=== PATIENT | female | born 1950 | race Caucasian/White ===

== ENCOUNTER → 2017-07-29 09:38 | Outpatient (CLI) | payer OTHER, SELFPAY ==
--- NOTE | 2017-07-29 | DI.CT.S_ITS ---
PROCEDURE: CT ABDOMEN PELVIS WO/W CON INDICATIONS: hematuria. Bladder cancer surveillance TECHNIQUE: Optional 5 mm thick noncontrast images acquired from the diaphragm to the symphysis pubis. After the administration of intravenous contrast, 5 mm thick images acquired from the diaphragm to the symphysis pubis after a 10-minute delay. 2 mm thick coronal and sagittal reformats were then performed of the kidneys and ureters. For radiation dose reduction, the following was used: automated exposure control, adjustment of mA and/or kV according to patient size. COMPARISON: [facility], CT, IVP (ABD & PEL WWO CONTRAST), 06/26/2016, 11:25. FINDINGS: Image quality: Excellent. Lung bases: There are a few small clustered ground glass nodular opacities within the left lower lobe measuring approximately 2 mm. Mild dependent atelectasis is also present bilaterally as well as atelectasis or scarring in the inferior left lingula. Heart size is normal. Urinary system: Both kidneys are normal in size, without hydronephrosis or nephrolithiasis. No perinephric fat stranding. There is symmetric bilateral renal enhancement. 2 small indistinct hypodensities are redemonstrated bilaterally likely representing small cysts. Renal calyces appear normal in morphology when filled with contrast without discrete filling defects will. Opacified portions of both ureters demonstrate normal caliber. Bladder wall thickness is normal. No calcified bladder stones. The partially opacified urinary bladder demonstrates no discrete mass lesions. Other solid organs: There is a cyst within the posterior right hepatic lobe measuring up to 1.4 cm redemonstrated. In addition, there are a few additional scattered well-circumscribed hypodense lesions elsewhere throughout the liver which appears similar to slightly increased in size compared to the prior study. These remain too small to characterize but likely represent cysts. The gallbladder appears within normal limits without calcified gallstones or wall thickening. Biliary system is non dilated. Pancreas enhances normally. Spleen is normal in size and enhancement. No adrenal nodules. Peritoneum and bowel: Bowel loops demonstrate normal wall thickness and caliber. The descending colon is nondistended. There are a few colonic diverticula without acute diverticulitis. No free fluid or air. Nodes and vessels: No retroperitoneal or mesenteric adenopathy by size criteria. Aorta and inferior vena cava are normal in size. Abdominal wall: No ventral hernias. Pelvis: No pathologic free pelvic fluid. No inguinal hernias or adenopathy. Bones: No suspicious bony lesions. No vertebral body compression fractures. IMPRESSION: 1. No definite evidence of new recurrent or metastatic disease. 2. Partially opacified urinary bladder demonstrates no discrete masslike filling defects. Recommend correlation with cystoscopy if clinically indicated. 3. Scattered hypodensities in the liver are too small to characterize but statistically likely represent cysts. Dictated by: Ray Posada M.D. on 07/29/2017 at 13:44 Approved by: Ray Posada M.D. on 07/29/2017 at 13:55
== END ==
PROVIDERS: Family Provider Family Medicine; PCP Family Medicine; Visit Provider Urology
DX: R31.9 Hematuria, unspecified (principal); Z08 Encounter for follow-up examination after completed treatment for malignant neoplasm; K76.9 Liver disease, unspecified
CPT/HCPCS: 74178; Q9967

== ENCOUNTER 2017-11-30 11:56 | Day surgery (SDC) | payer OTHER, SELFPAY ==
[2017-11-19 12:00] VITALS: BMI 29.7
--- NOTE | 2017-11-30 | DI.RAD.S_ITS ---
PROCEDURE: XR LUMBAR SPINE 1V INDICATIONS: L2-3 LAMI AND DISCECTOMY TECHNIQUE: 1 views of the lumbar spine were acquired. COMPARISON: [facility] [place], CR, XR LUMBAR SPINE 2 OR 3 VIEWS, 11/10/2017, 8:46. [facility], MR, MR LUMBAR SPINE WITHOUT CONTRAST, 10/27/2017, 13:32. [facility], CR, L-SPINE MINIMUM 4 VIEWS, 09/02/2010, 11:03. FINDINGS: Intraoperative images demonstrating localizer at the level of L2. Multilevel degenerative changes are present. IMPRESSION: Intraoperative localizer as above. Dictated by: Le Parsons M.D. on 11/30/2017 at 17:17 Approved by: Le Parsons M.D. on 11/30/2017 at 17:17
[2017-11-30 12:30] VITALS: BP 178/72; PULSE 64; RESP 20; TEMP 37.1; O2SAT 98; BMI 29.7
[2017-11-30] MEDS: LACTATED RINGERS 1,000 ML 42 ML IV ×2 (15:00→18:03)
--- NOTE | 2017-11-30 15:27 | PM.PREOP ---
Pre-operative Note Interval Note Pre-op Check: Yes History & Physical Reviewed by Physician and Yes Exam Performed Changes: No
--- NOTE | 2017-11-30 16:01 | P.OP_ITS ---
Operative Date/Time/Diagnoses Date of procedure: 11/30/17 Time of procedure: 17:32 Pre-op diagnosis: Lumbar disc herniation with radiculopathy Post-op diagnosis: same Procedure & Clinicians Procedure: L2-3 right diskectomy Use of microscope Placement of epidural catheter Same procedure as scheduled: Yes Indications: [age] year old female with intractable pain from lumbar disc herniation. They had failed conservative management and requested operative intervention. Risks and benefits of surgery were discussed and appropriate consents were obtained. Surgeon: Deni Bridges Fisheries Enforcement Officer: Alison Corado Anesthesia Type: General Operative Notes Findings: none Closure Type: primary Specimen(s): none sent Estimated Blood Loss (mL): 20 Procedure in detail: Patient was brought to the operating room and intubated on the table. They were rolled over on the well-padded prone position on the Loyd table. A time-out was performed. Preoperative antibiotics were given. The back was prepped and draped in standard sterile fashion. Using fluoroscopy for localization, a 3 cm incision was made in the midline. We used Bovie to dissect through the lumbodorsal fascia and then subperiosteally dissect the paraspinal muscles off the well-marked right side. A marker was placed and x-ray was taken to confirm positioning, factoring in her transitional S1. We then brought in the microscope. A right-sided laminotomy was performed at L2- 3. We also undermined the top of the L3 lamina. The dura was carefully retracted medially and the disc was exposed. We carefully had to clear up until we could free the traversing nerve root and move it out of the way. The disc tracked down behind the L3 vertebral body detention. Bipolar was used for hemostasis. We then performed an annulotomy with a scalpel and then a diskectomy with pituitary. We had to cut down along the extruded fragment and then removed a very large fragment by sweeping with a ball probe. The ball probe was run into the disc space and underneath the dura inferiorly past the pedicle until we are sure that it had all been removed. There were no more fragments. Everything was decompressed. The wound was irrigated. An epidural catheter was prepared with 8 mL of 0.25% Marcaine and 100 mcg of fentanyl. The dura was carefully depressed and the catheter was advanced 6 cm cephalad underneath remaining lamina without resistance. The fascia was then closed in layers. The epidural catheter was injected without complications. Vancomycin powder was placed in the wound. The superficial and the skin were closed. Sterile dressing was placed. Patient was rolled over extubated brought to recovery room with no complications. Complications: none Condition: stable Disposition: PACU Plan for aftercare: Outpatient. Limited bend lift twist for 6 weeks.
[2017-11-30] MEDS: CLINDAMYCIN 900 MG/50 ML PIGGYBACK 50 MG IV (16:05)
--- NOTE | 2017-11-30 16:39 | SUR.OPER ---
Prone on spine table, head in foam head support, padded chest and pelvic supports, gel pad at knees, lower legs supported by pillows; nipples, genitalia and toes free of pressure, arms secured on foam padded arm boards at <90 degrees abduction. Tape over blanket at thigh secured to table.
[2017-11-30] MEDS: THROMBIN (BOVINE) 5,000 UNIT VIAL 5000 UNIT TOP ×2 (16:48→16:56)
[2017-11-30] MEDS: VANCOMYCIN 1,000 MG VIAL 1000 MG TOP ×2 (16:49→16:56)
[2017-11-30] MEDS: BUPIVACAINE 0.25% (PF) 8 ML, fentaNYL 100 MCG INJ ×2 (16:50→16:55)
[2017-11-30] MEDS: SODIUM CHLORIDE 0.9% 1,000 ML, GENTAMICIN 80 MG IRR ×2 (16:50→16:55)
[2017-11-30 17:47] VITALS: BP 114/74; PULSE 88; RESP 14; TEMP 36.9; O2SAT 98
[2017-11-30 17:52] VITALS: BP 132/78; PULSE 88; RESP 14; O2SAT 96
[2017-11-30 17:57] VITALS: BP 131/77; PULSE 90; RESP 14; O2SAT 96
[2017-11-30 18:02] VITALS: BP 142/77; PULSE 93; RESP 14; O2SAT 96
[2017-11-30 18:08] VITALS: BP 152/85; PULSE 90; RESP 14; TEMP 36.1; O2SAT 95
== END 2017-11-30 19:00 | disposition home or self-care (01) ==
PROVIDERS: Family Provider Family Medicine; PCP Family Medicine; Visit Provider Orthopaedic Surgery
PROC: (CPT 63047; principal; 2017-11-30 14:45)
DX: M51.16 Intervertebral disc disorders with radiculopathy, lumbar region (principal); M48.062 Spinal stenosis, lumbar region with neurogenic claudication; M43.16 Spondylolisthesis, lumbar region; Z87.891 Personal history of nicotine dependence; J45.909 Unspecified asthma, uncomplicated
CPT/HCPCS: 63047; 72020; 76000; J1100; J2405; J2704; J3010

== ENCOUNTER → 2019-06-08 07:52 | Outpatient (CLI) | payer MEDICARE, OTHER, SELFPAY ==
--- NOTE | 2019-06-08 | DI.CT.S_ITS ---
PROCEDURE: CT ABDOMEN PELVIS WO/W CON INDICATIONS: Personal history of malignant neoplasm of bladder TECHNIQUE: Optional 5 mm thick noncontrast images acquired from the diaphragm to the symphysis pubis. After the administration of intravenous contrast, 5 mm thick images acquired from the diaphragm to the symphysis pubis after a 10-minute delay. 2 mm thick coronal and sagittal reformats were then performed of the kidneys and ureters. For radiation dose reduction, the following was used: automated exposure control, adjustment of mA and/or kV according to patient size. COMPARISON: [facility], MR, MR LUMBAR SPINE WITHOUT CONTRAST, 10/27/2017, 13:32. [facility], CT, CT ABDOMEN PELVIS WO/W CON, 07/29/2017, 10:00. FINDINGS: Image quality: Excellent. Lung bases: Lung bases are clear. Heart size is normal. Urinary system: Both kidneys are normal in size, without hydronephrosis or nephrolithiasis on pre-contrast images. No perinephric fat stranding. There is normal bilateral renal enhancement. There is a tiny 5 mm indeterminate cortical hypodensity in the mid right kidney. A 3 mm indeterminate cortical hypodensity in the lower pole of the left kidney. Renal calyces appear normal in morphology when filled with contrast. Opacified portions of both ureters demonstrate normal caliber. Bladder wall thickness is normal. No calcified bladder stones. Other solid organs: There are multiple hepatic hypodensities in left and right hepatic lobe, most likely cysts. Liver is normal in size and enhancement. Gallbladder is normal. Biliary system is non dilated. Pancreas enhances normally. Spleen is normal in size and enhancement. No adrenal nodules. Peritoneum and bowel: Stomach appears thickened. Bowel loops demonstrate normal wall thickness and caliber. No free fluid or air. Nodes and vessels: No retroperitoneal or mesenteric adenopathy by size criteria. Aorta and inferior vena cava are normal in size. Abdominal wall: No ventral hernias. Pelvis: Uterus and ovaries are normal. No pathologic free pelvic fluid. No inguinal hernias or adenopathy. Bones: No suspicious bony lesions. No vertebral body compression fractures. IMPRESSION: 1. No recurrent bladder mass. 2. A couple of small indeterminate renal cortical hypodensities, one on each side, probably small renal cysts. 3. Multiple hepatic hypodensities are likely cysts. 4. Stomach appears thickened. Differential diagnoses include gastritis versus lack of distention. Dictated by: Briseida Giles M.D. on 06/08/2019 at 13:34 Approved by: Briseida Giles M.D. on 06/08/2019 at 18:33
[2019-06-08 08:50] LABS: BUN Creatinine Ratio 43.9 (6-22); Blood Urea Nitrogen 29 mg/dL (7-17); Estimated Glomerular Filt Rate > 60.0 mL/min (>60)
== END ==
PROVIDERS: Family Provider Family Medicine; PCP Family Medicine; Referring Provider Urology; Visit Provider Urology
DX: K76.9 Liver disease, unspecified (principal); Z85.51 Personal history of malignant neoplasm of bladder
CPT/HCPCS: 36415; 74178; 82565; 84520; Q9967

== ENCOUNTER → 2020-03-15 11:31 | Outpatient (CLI) | payer MEDICARE, OTHER, SELFPAY ==
--- NOTE | 2020-03-15 11:36 | DI.CT.S_ITS ---
PROCEDURE: CT SINUS SCREEN WO CON INDICATIONS: Chronic rhinitis TECHNIQUE: Noncontrast 3.0 mm axial images acquired from the frontal sinuses to the mid-sella, with coronal and sagittal reformats. For radiation dose reduction, the following was used: automated exposure control, adjustment of mA and/or kV according to patient size. COMPARISON: None. FINDINGS: Image quality: Excellent. Paranasal sinuses are normally aerated. No mucosal thickening identified in the paranasal sinuses. No air-fluid levels identified in the paranasal sinuses. The ostiomeatal units are patent bilaterally. Small bilateral magnolia bullosa. No paradoxical turbinates. Nasal septum is slightly deviated to the right. No osseous erosive changes, osseous remodeling or osseous thickening. Incidental note made of hyperostosis frontalis. IMPRESSION: 1. No paranasal sinus mucosal thickening. 2. No paranasal sinus air-fluid levels. Dictated by: Ca Chamberlain MD, PhD on 03/15/2020 at 16:24 Approved by: aC Chamberlain MD, PhD on 03/15/2020 at 16:27
== END ==
PROVIDERS: Family Provider Family Medicine; PCP Family Medicine; Referring Provider Nurse Practitioner Family; Visit Provider Nurse Practitioner Family
DX: J31.0 Chronic rhinitis (principal); J34.3 Hypertrophy of nasal turbinates; M85.2 Hyperostosis of skull
CPT/HCPCS: 70486

== ENCOUNTER → 2020-05-09 12:00 | Outpatient (CLI) | payer MEDICARE, OTHER, SELFPAY ==
[2020-05-09 13:09] LABS: COVID19 -Nasal RAPID Negative (Negative)
== END ==
PROVIDERS: Family Provider Family Medicine; PCP Family Medicine; Referring Provider Internal Medicine; Visit Provider Internal Medicine
DX: Z20.822 Contact with and (suspected) exposure to COVID-19 (principal)
CPT/HCPCS: 87635; C9803

== ENCOUNTER → 2020-05-09 14:03 | Outpatient (CLI) | payer MEDICARE, OTHER, SELFPAY ==
--- NOTE | 2020-05-19 11:06 | PM.PFT.1 ---
Pulmonary Function Test Referral & Results Date Patient Seen: 05/09/20 Requesting provider: Juanita Ruano Results: The spirometry demonstrates an FVC of 2.79 L which is 92% of predicted. The FEV1 was measured at 2.43 L which is 105% of predicted. The FEV1/FVC ratio was 87 which is 114% of predicted. Following the administration of bronchodilator there was no appreciable change to above normal numbers. Lung volumes show an SVC of 2.78 L which is 96% of predicted. The diffusing capacity was measured at 26.46 which is 109% of predicted. The maximum voluntary ventilation was normal Interpretation: This study demonstrates normal pulmonary function
== END ==
PROVIDERS: Family Provider Family Medicine; PCP Family Medicine; Referring Provider Internal Medicine Pulmonary Disease; Visit Provider Internal Medicine Pulmonary Disease
DX: R06.02 Shortness of breath (principal); Z20.822 Contact with and (suspected) exposure to COVID-19
CPT/HCPCS: 87635; 94060; 94726; 94729; C9803

== ENCOUNTER → 2020-05-15 08:13 | Outpatient (CLI) | payer MEDICARE, OTHER, SELFPAY ==
--- NOTE | 2020-05-15 08:17 | DI.ECHO.S_ITS ---
[facility] +---------+ : : [address] : : : : [id number] : : : : Phone: [phone]---------+ Echocardiogram Report + + :Name: NIKOLAI MORELAND Study Date: 05/15/2020 Height: 64 in : :[facility] ReadingLocation: Weight: 185 lb : : Gender: Female BSA: 1.9 m2 : :: 1950 Age: 69 yrs BP: 165/78 mmHg: :Reason For Study: DYSPNEA : :Ordering Physician: BENITO FAJARDO Performed By: Paula Heaton : :Referring: BENITO FAJARDO : + + Interpretation Summary Normal sinus rhythm with occasional monomorphic PVC's. Normal LV size and wall thickness; normal wall motion and LV systolic function. EF is 55-60%. Normal chamber sizes. No significant valvular abnormalities. No prior study available for comparison. Procedure: A two-dimensional transthoracic echocardiogram with color flow and Doppler was performed. The study quality was technically adequate. There is no prior echocardiogram noted for this patient. The patient had occasional PVCs during the exam. The patient was in sinus rhythm with heart rates between 61-77 bpm during the exam. Left Ventricle: The left ventricle is normal in size and wall thickness. The ejection fraction is estimated to be 55-60%. Diastolic parameters suggest probable normal left ventricular diastolic function and normal filling pressures. Right Ventricle: The right ventricle is normal in size and function. Atria: The left atrial size is normal. Right atrial size is normal. There is no Doppler evidence for an interatrial shunt. Mitral Valve: The mitral valve leaflets appear mildly thickened, but open well. There is trace mitral regurgitation. Aortic Valve: The aortic valve is trileaflet. The aortic valve opens well. There is no aortic valve stenosis. No aortic regurgitation is present. Tricuspid Valve: The tricuspid valve is normal in structure and function. There is trace tricuspid regurgitation. Pulmonary artery pressures cannot be estimated because of the lack of a measurable TR jet velocity but the IVC suggests a CVP of around 3 mmHg. Pulmonic Valve: The pulmonic valve leaflets are thin and pliable; valve motion is normal. There is no pulmonic valvular regurgitation. Great Vessels: The aortic root is normal size. The dimensions of the ascending aorta are normal. The IVC is of normal diameter and collapses greater than 50% with a sniff. This suggests a low right atrial pressure of 3 mm Hg. Pericardium/ Pleura There is no pericardial effusion. There is no pleural effusion. MMode/2D Measurements & Calculations LVIDd: 4.6 cm LVOT diam: 2.0 cm LVIDs: 3.1 cm Ao root diam: 2.8 cm FS: 33.0 % asc Aorta Diam: 3.3 cm EPSS: 0.88 cm Ao Arch Diam (Prox Trans): 2.7 cm IVSd: 1.0 cm LVPWd: 1.0 cm LV almeida. diameter/BSA (cm/m^2): 2.4 LV sys. diameter/BSA (cm/m^2): 1.6 LA A2 area: 20.7 cm2 RA long axis: 4.5 cm LA A4 area: 14.5 cm2 RA area: 12.5 cm2 LA length (vol): 4.6 cm RA vol: 29.8 ml LA vol: 55.4 ml RA : 15.8 ml/m2 LA vol index: 29.3 ml/m2 IVC diam: 1.1 cm RVD1 (basal): 3.1 cm TAPSE: 2.2 cm Doppler Measurements & Calculations Ao V2 max: 122.2 cm/sec LVOT Max Michael: 78.6 cm/sec Ao V2 mean: 89.6 cm/sec LV V1 max P.5 mmHg Ao max P.0 mmHg LV V1 VTI: 18.8 cm Ao mean P.5 mmHg SHANNAN(I,D): 2.3 cm2 Ao V2 VTI: 25.6 cm SHANNAN(V,D): 2.0 cm2 sev ratio: 0.73 SHANNAN indexed to BSA (cm^2/m^2): 1.2 MV E max michael: 46.0 cm/sec PA V2 max: 75.9 cm/sec MV A max michael: 87.3 cm/sec PA V2 mean: 54.6 cm/sec MV E/A: 0.53 PA mean P.3 mmHg Med Peak E' Michael: 7.9 cm/sec PA pr(Accel): 36.2 mmHg E/E' med: 5.8 Lat Peak E' Michael: 8.7 cm/sec E/E' lat: 5.3 E/e' average: 5.6 MV dec time: 0.17 sec SV(LVOT): 57.7 ml Electronically signed by: Dottie Hines M.D. on Reading Physician:05/15/2020 11:49 PM
== END ==
PROVIDERS: Family Provider Family Medicine; PCP Family Medicine; Referring Provider Internal Medicine Pulmonary Disease; Visit Provider Internal Medicine Pulmonary Disease
DX: R06.00 Dyspnea, unspecified (principal)
CPT/HCPCS: 93306

== ENCOUNTER → 2021-10-07 12:33 | Outpatient (CLI) | payer MEDICARE, OTHER, SELFPAY ==
[2021-10-07 13:17] LABS: Add Manual Diff / Slide Review NO; Basophils Absolute Auto 100 /uL (0-100); Basophils Percent Auto 1.1 % (0-2); Eosinophils Absolute Auto 200 /uL (0-450); Hemoglobin 13.2 g/dL (12.0-16.0); Lymphocytes Absolute Auto 2700 /uL (1100-4500); Lymphocytes Percent Auto 36.2 % (25-40); Mean Corpuscular HGB Conc 33.8 % (30-36); Mean Corpuscular Hemoglobin 29.7 PG (26-34); Mean Corpuscular Volume 87.9 fL (80-100); Monocytes Absolute Auto 600 /uL (0-900); Monocytes Percent Auto 8.5 % (3-14); Neutrophils Absolute Auto 3800 /uL (1500-7000); Neutrophils Percent Auto 51.2 % (50-75); Platelet Count 365 X10^3/uL (150-400); Red Blood Cell Count 4.44 X10^6/uL (4.0-5.2); White Blood Cell Count 7.5 X10^3/uL (4.5-11.0)
[2021-10-07 13:25] LABS: Appearance Urine UA CLEAR; Bilirubin Urine UA NEGATIVE (NEGATIVE); Color Urine UA YELLOW; Glucose Urine UA NEGATIVE (Negative); Ketones Urine UA NEGATIVE (NEGATIVE); Leukocyte Esterase Urine UA TRACE (NEGATIVE); Nitrite Urine UA NEGATIVE (Negative); Occult Blood Urine UA TRACE-LYSED (Negative); Protein Urine UA NEGATIVE (Negative); Urobilinogen Urine UA 0.2 E.U./dL (0.2)
[2021-10-07 13:26] LABS: pH Urine UA 5.5 (4.5-8.0)
[2021-10-07 13:34] LABS: Bacteria Urine None Seen; Culture Indicated Urine Cult Not Indicated; RBC Urine None Seen (0-5/HPF); Squamous Epithelial Cell Urine None Seen (0-5/HPF); WBC Urine None Seen (0-5/HPF)
[2021-10-07 13:37] LABS: BUN Creatinine Ratio 36.9 (6-22); Blood Urea Nitrogen 24 mg/dL (7-17); Carbon Dioxide 31 mmol/L (22-32); Chloride 102 mmol/L (98-107); Estimated Glomerular Filt Rate > 60 mL/min (>60); Glucose 97 mg/dL (80-110); HEMOLYSIS < 15 (0-50); Potassium 4.3 mmol/L (3.4-5.1); Sodium 137 mmol/L (137-145)
[2021-10-07 14:17] LABS: Hemoglobin A1C% w Est Avg Glu 5.9 % (4.0-6.0)
== END ==
PROVIDERS: Family Provider Family Medicine; PCP Family Medicine; Referring Provider Orthopaedic Surgery; Visit Provider Orthopaedic Surgery
DX: Z01.818 Encounter for other preprocedural examination (principal); E11.9 Type 2 diabetes mellitus without complications; Z01.812 Encounter for preprocedural laboratory examination; N39.0 Urinary tract infection, site not specified
CPT/HCPCS: 36415; 80048; 81001; 83036; 85025; 93005; 93010

== ENCOUNTER → 2021-10-09 16:59 | Outpatient (CLI) | payer MEDICARE, OTHER, SELFPAY ==
--- NOTE | 2021-10-09 | DI.US.S_ITS ---
PROCEDURE: US PERIPH VENOUS LOW EXTREM LT INDICATIONS: lt leg swelling TECHNIQUE: Real-time imaging, as well as color and pulse Doppler interrogation, were performed of the lower extremity deep veins from the inguinal ligament to the popliteal fossa. COMPARISON: None. FINDINGS: The common femoral, femoral and popliteal veins are normally compressible, and free of intraluminal thrombus. Color and pulse Doppler demonstrate normal phasic intraluminal flow. There is normal augmentation response to distal compression maneuver. Complex fluid collection is seen within the popliteal fossa, which may represent a hematoma or a complex Bonilla's cyst measuring 4.9 x 3.7 x 2 cm. IMPRESSION: Negative for deep venous thrombosis. Dictated by: Gino Mukherjee M.D. on 10/09/2021 at 17:05 Approved by: Gino Mukherjee M.D. on 10/09/2021 at 17:06
== END ==
PROVIDERS: Family Provider Family Medicine; PCP Family Medicine; Referring Provider Nurse Practitioner Family; Visit Provider Nurse Practitioner Family
DX: R22.42 Localized swelling, mass and lump, left lower limb (principal)
CPT/HCPCS: 93971

== ENCOUNTER 2021-10-16 10:12 | Day surgery (SDC) | payer MEDICARE, OTHER, SELFPAY ==
[2021-10-07 11:57] VITALS: BMI 33.3
[2021-10-16] VITALS (11 sets, daily range): BP systolic 125–174; BP diastolic 61–92; PULSE 53–87; RESP 16–20; TEMP 35.9–36.8; O2SAT 93–100; BMI 32.9
[2021-10-16] MEDS: LACTATED RINGERS 1,000 ML 42 ML IV ×2 (12:59→15:29)
--- NOTE | 2021-10-16 13:11 | DI.RAD.S_ITS ---
PROCEDURE: XR KNEE LT 1TO2V INDICATIONS: left TKA TECHNIQUE: 2 view(s) of the knee acquired. COMPARISON: None. FINDINGS: Bones: Patient is status post knee joint arthroplasty. Hardware components are in expected positions. Visualized bony structures are intact. Soft tissues: Overlying postoperative changes are noted. IMPRESSION: Post left total knee arthroplasty changes with anatomic left knee alignment. Dictated by: Hari Navarrete M.D. on 10/16/2021 at 17:13 Approved by: Hari Navarrete M.D. on 10/16/2021 at 17:13
[2021-10-16] MEDS: ACETAMINOPHEN 325 MG TABLET 975 MG PO (13:17)
[2021-10-16] MEDS: VANCOMYCIN 1,000 MG/200 ML PIGGYBACK 200 MG IV (13:19)
--- NOTE | 2021-10-16 13:42 | PM.PREOP ---
Pre-operative Note COVID-19 COVID-19 status: Negative Interval Note History & Physical reviewed/Exam performed by Physician: Yes Changes to H&P: No H&P completed within 30 days and has changed as indicated here:: wants injection in right knee, bilateral knee pain.
--- NOTE | 2021-10-16 14:27 | SUR.OPER ---
Supine on padded OR bed. Pillow under head, arms secured on padded armboards <90 degree abduction. Safety belt across torso. Non-operative leg secured with tape over blanket over lower leg. Operative leg secured in [place]. Foam padded brace at thigh of operative leg.
--- NOTE | 2021-10-16 14:33 | PM.OP.1 ---
Operative Date/Time/Diagnoses Date of procedure: 10/16/21 Time of procedure: 14:30 Pre-op diagnosis: Left knee OA, right knee OA Post-op diagnosis: same Procedure & Clinicians Procedure: Left total knee arthroplasty, right knee intra-articular cortisone injection Same procedure as scheduled: Yes Indications: The patient has had progressively worsening left knee pain with radiographic changes consistent with arthritis. Non-operative management has failed and the patient has requested total knee replacement. The risks, benefits and alternatives to surgery were discussed with the patient prior to proceeding. Risks discussed included, but were not limited to, failure to relieve pain, stiffness, infection, nerve damage, deep venous thrombosis, pulmonary embolism, stroke, coma, heart attack, permanent paralysis and , as well as the potential need for eventual revision of the prosthetic. She also has fairly severe right knee osteoarthritis. I told her we can do a right knee intra-articular cortisone injection. Surgeon: Neha Hu Hoop Flaring Machine Operator: Ross Urias Anesthesia Type: General and Spinal Operative Notes Findings: Severe left knee osteoarthritis, adequate stability Closure Type: primary Specimen(s): none sent Prosthetic devices, grafts, tissues, transplants, or devices: [employer] [facility] BCS 2 size 4 femur, size 4 tibia, +10 poly, 32 by 7.5mm patella Applied: drain(s) Estimated Blood Loss (mL): 250 Tourniquet time (min): 72 Procedure in detail: The patient was seen in the pre-operative area, where the patient identified the left knee as the operative site and this was marked with my initials. The patient received pre-operative antibiotics, and was taken to the operating room and placed on the operative table in the supine position. After satisfactory anesthesia, a real time analyst out was performed. The right leg was injected in the right knee with 4 mg of Decadron and 4 cc of Marcaine. Next the left knee was Encircled with a tourniquet about the proximal thigh, and the leg was prepared from the toes to the tourniquet with ChloroPrep in the usual fashion and draped through sterile drapes. The leg was elevated and exsanguinated with Eschmark bandage and the tourniquet inflated to [250] mmHg pressure. The knee was approached through an approximately 18 cm incision centered over the patella and carried into the knee through a medial parapatellar arthrotomy. A portion of the medial and lateral meniscus was resected. Soft tissue was carefully mobilized around the patella the patella was measured with a caliper. Bone was resected from the patella and the patellar height was reconstituted with up an appropriate sized patellar component. A cover was then placed on the patella. A small amount of additional medial and lateral meniscus was resected. The distal femur was cut at 5?. A [+2] cut was used. It looked like an appropriate distal femoral cut and the cut was made without difficulty. An extramedullary guide was used for the tibial cut. 10 mm was resected off the least affected side.The tibia was prepared. The rotation was assessed. The patient was placed in extension residual medial and lateral meniscus as well as any residual bone was carefully resected. [No] additional tibia was resected. Hemostasis was achieved especially posteriorly. Additional local was injected into the posterior capsule. The extension gap was assessed and additional releases for gap balancing were performed as necessary. It was checked with the gap medical staff specialist. The femoral component was trial was placed and the notch was finished. The rotation was assessed and the appropriate size femoral guide was placed on the distal femur and finishing cuts were made. There was no evidence of notching. The anterior, posterior and chamfer cuts were then made. The posterior osteophytes and soft tissues were then removed. The posterior capsule was injected with part of a mixture of 60 ml 0.25% Marcaine mixed with 20 ml Exparel for post operative pain control. The remainder of this mixture was injected into the capsule and subcutaneous tissues during cement curing. The tibial and femoral components were then placed and the knee placed through a range of motion. Range of motion was [0-130], with good stability throughout the range. The trials were then removed, and the tibia was finished. The bone was prepared with pulsatile lavage, and dried with a sponge. Cement was applied and the final prosthetics placed. Excess cement was removed during and after cement curing. A brief Betadine soak was performed. After confirming there was no extruded cement posteriorly, the final tibial insert was placed. The knee was copiously irrigated and the tourniquet deflated. Hemostasis was obtained with the Bovie cautery. A drain was placed and brought out superolaterally. The capsule was closed with interrupted nonabsorbable suture. The subcutaneous layer was closed with barbed sutures, and the skin with a running 3-0 V-Lock suture and Surgical glue. A Elio dressing was applied and the patient was taken to recovery having tolerated the procedure well. Complications: none Post-operative Condition: stable Disposition: Acute Care Plan for aftercare: The patient will be maintained on a standard total knee replacement protocol with weight bearing as tolerated. The patient will receive aspirin and sequential compression devices for DVT prophylaxis. The patient will be discharged home when safe for the home environment.
[2021-10-16] MEDS: BUPIVACAINE LIPOSOME 266 MG/20 ML VIAL INJ (14:34)
[2021-10-16] MEDS: SODIUM CHLORIDE IRRIG SOLUTION 250 ML, POVIDONE-IODINE SPONGE STICKS 1 APPLIC IRR (14:35)
[2021-10-16] MEDS: FLUSH INJ (14:40)
[2021-10-16] MEDS: BUPIVACAINE 0.5% INJ (14:40)
[2021-10-16] MEDS: SODIUM CHLORIDE 0.9% INJ (14:40)
[2021-10-16] MEDS: EPINEPHRINE INJ (14:40)
[2021-10-16] MEDS: DEXAMETHASONE 10 MG/ML VIAL 4 MG INJ (14:51)
[2021-10-16] MEDS: TRANEXAMIC ACID 1,000 MG VIAL 2000 MG INJ ×2 (15:09→16:25)
[2021-10-16] MEDS: CEFAZOLIN 2 GM/20 ML SYRINGE IV ×2 (15:12→23:07)
--- NOTE | 2021-10-16 17:15 | SUR.PHASEI ---
Addendum entered by Zenobia Muñoz R.N. 10/16/21 17:23: 1723: Report given to KAREN Bravo using SBAR with time allowed for questions. Pt left unit via bed to receiving unit with all personal belongings including walker, white plastic bag and green bag. Original Note: 7853: Pt's A&Ox4, denies pain, spinal progressing at level 5, VSS and ready to transfer to room. Attempt to call report RN busy at this time. Will return call when available. KAREN Fregoso x [phone]
[2021-10-16] MEDS: ACETAMINOPHEN 325 MG TABLET 650 MG PO ×2 (18:00→23:50)
[2021-10-16] MEDS: LACTATED RINGERS 1,000 ML 100 ML IV (18:00)
[2021-10-16] MEDS: IBUPROFEN 400 MG TABLET PO (18:00)
[2021-10-16] MEDS: ALBUTEROL 2.5 MG/3 ML NEB (ADULT) INH (20:08)
[2021-10-16] MEDS: BUDESONIDE 0.5 MG/2 ML NEB INH (20:09)
[2021-10-16] MEDS: ONDANSETRON 4 MG/2 ML INJ IV (20:23)
[2021-10-16] MEDS: PANTOPRAZOLE DR 20 MG TABLET PO (21:43)
[2021-10-16] MEDS: METOCLOPRAMIDE 10 MG/2 ML INJ IV (23:15)
[2021-10-16] MEDS: OXYCODONE IR 10 MG TABLET PO (23:50)
[2021-10-17 00:05] VITALS: BP 124/66; PULSE 88; RESP 18; TEMP 36.6; O2SAT 97
[2021-10-17] MEDS: IBUPROFEN 400 MG TABLET PO ×4 (00:38→12:03)
[2021-10-17] MEDS: OXYCODONE IR 5 MG TABLET PO (04:08)
[2021-10-17] MEDS: LACTATED RINGERS 1,000 ML 100 ML IV (04:09)
[2021-10-17 04:22] VITALS: BP 135/80; PULSE 93; RESP 18; TEMP 36.7; O2SAT 95
[2021-10-17] MEDS: MAG HYDROX/ALUM/SIMETH 30 ML UDC PO ×2 (05:07→12:08)
[2021-10-17] MEDS: ACETAMINOPHEN 325 MG TABLET 650 MG PO ×2 (06:05→12:03)
[2021-10-17] MEDS: CEFAZOLIN 2 GM/20 ML SYRINGE IV (06:05)
[2021-10-17 06:51] LABS: Hematocrit 33.6 % (36-46); Hemoglobin 11.2 g/dL (12.0-16.0)
[2021-10-17 07:47] VITALS: BP 107/57; PULSE 84; RESP 17; TEMP 36.1; O2SAT 100
--- NOTE | 2021-10-17 09:30 | PT.IIE ---
Current Diagnoses Unilateral primary osteoarthritis, left knee (10/16/21) Surgery Performed Operation Date: 10/16/21 13:45 Actual Procedures p Total Knee Arthroplasty, inject right knee(Left) - Neha Hu MD Surgical History (Last Reviewed 10/17/21 @ 10:04 by Mary Fisher PA-C) History of bladder surgery History of hysterectomy (~2000) History of laryngoscopy Hx of discectomy (11/30/17) Hx of laminectomy Status post appendectomy (~1991) Status post discectomy (~1992) Status post knee surgery (~2001) Medical History (Last Reviewed 10/17/21 @ 10:04 by Mary Fisher PA-C) Asthma Chronic hoarseness Dysphagia Dysphonia Low back pain Lumbar degenerative disc disease Lumbar disc herniation with radiculopathy Lumbar stenosis with neurogenic claudication MITALI (obstructive sleep apnea) Papilloma Weakness of right leg Physical Therapy Inpatient Evaluation/Re-Eval M1 PT/OT-IP Prior Functional Status Start: 10/17/21 13:14 Freq: NEEDED Status: Active Protocol: Document 10/17/21 09:30 AB (Rec: 10/17/21 13:29 AB [email or web address]) Medical Review Prior Functional Status Medical History Reviewed Yes Communication able to make needs known Mobility and Gait pt stated that she is modified independent with all mobilities and ambulation using a SPC indoors for the last 5 months and uses 2 walking sticks for outdoor mobility Social History Household Members spouse Living Arrangements House Number of Floors (Floors) One Floor Number of Stairs To Enter/Railing? 2 steps R rail ascending to enter the house Home Environment Standard Height Toilet,Walk in Shower,Tub/Shower Home Equipment Front Wheel Walker,Four Wheel Walker,Straight Cane,Raised Toilet Seat Without Armrests, Hand Held Shower,Grab Bars Near Toilet,Grab Bars In Shower M2 PT-IP Current Condition Start: 10/17/21 13:14 Freq: NEEDED Status: Active Protocol: Document 10/17/21 09:30 AB (Rec: 10/17/21 13:29 AB [email or web address]) Physical Therapy Current Condition Current Condition Evaluation Date 10/17/21 Treatment Diagnosis s/p L TKA; difficulty in walking Onset Date 10/16/21 M3 PT-IP Subjective Start: 10/17/21 13:14 Freq: NEEDED Status: Active Protocol: Document 10/17/21 09:30 AB (Rec: 10/17/21 13:29 AB [id number]) Subjective Physical Therapy Visit Type Type Initial Evaluation Visit Start Time 09:30 Visit Stop Time 10:40 Total Visit Minutes 70 Number of DIAL SCREW ASSEMBLER Visits 0 Physical Therapy Visit Comments Patient Comments agreeable to do PT Therapy Pain Assessment Pain When Pain Assessed During Mobility Pain Present Pain Present Pain Reported Location left knee Intensity 8 Scale Used Numeric (0 - 10) Pain Management Techniques Apply Cold,Distraction, Modification of Treatment,Re- positioning,Timing of Activity with Medications M4 PT-IP Mobility and Gait Start: 10/17/21 13:14 Freq: NEEDED Status: Active Protocol: Document 10/17/21 09:30 AB (Rec: 10/17/21 13:29 AB [id number]) PT-Bed Mobility Assessment Supine to Sit Supine to Sit Standby Assistance Sit to Supine Sit to Supine Standby Assistance PT-Transfer Assessment Sit to and From Stand Sit to and from Stand Standby Assistance,1 Person Assistance,Use of Upper Extremities Equipment Transfer Assistive Device Gait Belt,Front Wheeled Walker Orthotic/Prosthetic Devices or Brace: No Transfers Transfer Destination Bed Transfer Technique ambulated Transfer Ability Level of Assist Standby Assistance,1 Person Assistance,Use of Upper Extremities Comments Mobility Comments completed sit to stand from the chair SBA and ambulated to the bed using FWW SBA ~ 12 ft . completed sit <> supine SBA. pt requested to use the toilet and ambulate suing FWW to the toilet SBA. able to complete toileting needs without assistance. ambulated from the toilet to the sink using FWW SBA. able to maintain standing using FWW for support SBA while completing handwashing. pt agreed to do stairs. ambulated ~ 100 ft using FWW SBA. completed up/down steps using R rail ascending SBA to CGA. assisted pt back to her room. ambulated from w/c to bed using fWW SBA. completed sit to supine SBA. positioned pt in bed. call light and table placed within reach. Gait Assessment Gait Gait Assistance Required: Standby Assistance Distance (Feet) 100 Able to Maintain Weight Bearing Status Yes During Gait Assistive Devices Assistive Device Gait Belt,Front Wheeled Walker Orthotic/Prosthetic Devices or Brace: No Gait Deviations General Gait Pattern Antalgic,Decreased Stride Length,Decreased Feet Clearance Factors Limiting Gait Function Factors Limiting Gait Function Decreased Activity Tolerance, Decreased Strength,Limited Range of Motion,Pain,Poor Balance Stair Climbing Assessment Evaluation Level of Assist On Stairs Contact Guard Assistance Devices Stair Climbing Assistive Devices Right Railing Technique/Endurance Stair Climbing Direction Ascend and Descend Stair Climbing Technique Step to Step Number of Steps Climbed 3 Query Text: Stair Climbing Set # Repetitions (reps) 1 PT-Balance Assessment Sitting Balance and Reactions Static Sitting Balance Ability Normal Dynamic Sitting Balance Ability Normal Standing Balance and Reactions Static Standing Balance Ability Good Dynamic Standing Balance Ability Fair Device Used FWW M5 PT-IP Objective Assessments Start: 10/17/21 13:14 Freq: NEEDED Status: Active Protocol: Document 10/17/21 09:30 AB (Rec: 10/17/21 13:29 [email or web address]) Orientation Orientation/Cognition Level of Alertness Alert Orientation Name,Place,Situation Language Function Ability Hard of Hearing Safety Awareness Decreased Safety Awareness Gross Range of Motion Lower Extremity ROM Impairments L knee flexion: ~ 70 deg Strength Lower Extremity Strength Assessment Left Impaired Hip 4/5 Knee 4-/5 Coordination Assessment Gross Coordination Gross Coordination WNL Sensation Assessment Sensation Gross Sensation WNL Muscle Tone Muscle Tone WNL Yes M6 PT-IP Treatment Start: 10/17/21 13:14 Freq: NEEDED Status: Active Protocol: Document 10/17/21 09:30 AB (Rec: 10/17/21 13:29 [email or web address]) Physical Therapy Treatment Education Education Provided Precautions,Weight Bearing Status,Post-Op Packet,Safety M7 PT-IP Assessment and Plan Start: 10/17/21 13:14 Freq: NEEDED Status: Active Protocol: Document 10/17/21 09:30 AB (Rec: 10/17/21 13:29 [email or web address]) PT Summary Assessment and Plan Potential Rehabilitation Potential Good Status of Condition at Evaluation Stable Summary Impairments Pain,ROM,Strength,Balance, Coordination,Sensation,Tone, Cognition,Bed Mobility, Transfers,Gait,Activity Tolerance Assessment Summary pt requiring SBA to CGA with mobility and plans to go home and spouse to assist her. pt has outpt PT set up. pt may go home when medically stable. Goals Bed Mobility Goal Independent Transfer Goal Independent,Front Wheeled Walker Gait Goal Independent,Front Wheel Walker Gait Distance 200 Other Goals up/down 2 steps R rail ascending mod I Days to Meet Goals 5 Frequency of Treatment Frequency Of Treatment Twice a Day Treatment Plan Physical Therapy Treatment Plan Bed Mobility Training,Transfer Training,Gait Training, Therapeutic Exercise,Balance Retraining,Post Op Education, Discharge Planning,Hot or Cold Pack,Neuromuscular Re-ed, Coordination Retraining,Manual Therapy Weight Bearing Status Weight Bearing Status Weight Bear as Tolerated Allowed Weight Bearing Amount (enter % LLE WBAT or #) (%) Recommendations To Nursing Amount of Assist Needed 1 Person Assist Discharge Recommendations PT Discharge Recommendations Home with Assistance, Outpatient PT Transportation Needs at Discharge Private Vehicle
[2021-10-17] MEDS: PANTOPRAZOLE DR 20 MG TABLET PO (09:41)
[2021-10-17] MEDS: DOCUSATE 100 MG CAPSULE PO (09:41)
[2021-10-17] MEDS: ASPIRIN EC 81 MG TABLET PO (09:41)
[2021-10-17] MEDS: OXYCODONE IR 10 MG TABLET PO ×2 (09:41→15:01)
[2021-10-17] MEDS: OXYBUTYNIN 5 MG ER TAB PO (09:41)
[2021-10-17] MEDS: FLUTICASONE 120 SPRAY/16 GM SPRAY.SUSP NASAL (09:42)
[2021-10-17] MEDS: ALBUTEROL 2.5 MG/3 ML NEB (ADULT) INH ×2 (09:51→13:04)
[2021-10-17] MEDS: BUDESONIDE 0.5 MG/2 ML NEB INH (09:51)
[2021-10-17 09:52] VITALS: O2SAT 96
--- NOTE | 2021-10-17 10:02 | P.DS_ITS ---
History of Present Illness History of Present Illness Date Patient Seen: 10/17/21 Time Patient Seen: 10:03 Chief complaint: OPB Narrative: Patient is complaining of [id number] left knee pain this morning. She had nausea and vomiting last night, but that is resolving. She was able to tolerate breakfast well. She is not worked with physical therapy yet. 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 They live on the [facility]. The patient has prepared well at home, and would like to be discharged home today if she is safe with PT. Discharge Providers Provider Discharge Date: 10/17/21 Primary care physician: Alex Young MD Consults: 10/06/21 12:30 Consult to Anesthesiology Routine Comment: Consulting Provider: Anesthesiologist Reason for consultation: Surgeon requested re: Airway papilloma 10/07/21 12:14 Consult to Anesthesiology Routine Comment: Consulting Provider: Anesthesiologist Reason for consultation: Surgeon requested re: Airway papilloma 10/16/21 13:11 Consult to Anesthesiology Routine Comment: Consulting Provider: Anesthesiologist Reason for consultation: Regional block for post operative pain control 10/16/21 17:29 Consult to Discharge Planning Routine Comment: Consult to Physical Therapy Evaluate & Treat Comment: Physician Instructions: postop TKA protocol Consult to Respiratory Therapy Evaluate & Treat Comment: Physician Instructions: Evaluate and treat Discharge provider: Mary Fisher PA-C Exam Vital Signs (past 8 hours): - 10/17/21 04:22 10/17/21 07:47 10/17/21 09:52 Temperature 98.0 F 96.9 F L Pulse Rate 93 H 84 Respiratory Rate 18 17 Blood Pressure 135/80 107/57 L Pulse Oximetry 95 100 96 Oxygen Delivery Method Room Air Oxygen Flow Rate 2 2 Oxygen Delivery Method Room Air Oxygen Flow Rate 2 Narrative Exam Narrative: Pleasant 71-year-old, resting comfortably in her chair actively doing her physical therapy exercises on her own, no acute distress. Dressing is clean, dry, intact. Bilateral lower extremity: Motor functions are grossly intact, sensation is grossly intact to light touch, calves are soft and nontender to palpation. Objective Labs Result Diagrams: 10/17/21 06:35 Labs: Laboratory Results - last 24 hr 10/17/21 06:35 Hgb 11.2 L Hct 33.6 L PFSH Medical History Asthma Chronic hoarseness Dysphagia Dysphonia Low back pain Lumbar degenerative disc disease Lumbar disc herniation with radiculopathy Lumbar stenosis with neurogenic claudication MITALI (obstructive sleep apnea) Papilloma Weakness of right leg Surgical History History of bladder surgery History of hysterectomy (~2000) History of laryngoscopy Hx of discectomy (11/30/17) Hx of laminectomy Status post appendectomy (~1991) Status post discectomy (~1992) Status post knee surgery (~2001) Family History Brother Age: 80 COPD (chronic obstructive pulmonary disease) Father Heart disease Hypertension High cholesterol Grandfather Stroke Sister Age: 73 Cancer Diabetes mellitus Hypertension High cholesterol Sister Age: 64 Obesity Social History household members: spouse Smoking Status: Former smoker alcohol intake: former Discharge Assessment & Plan Assessment and Plan Assessment: -stable status post left total knee arthroplasty -Postop nausea and vomiting, resolving Plan of Treatment: -mobilized with PT. weightbearing as tolerated front wheel walker -continue with multimodal pain management -Zofran as needed for nausea/vomiting -Aspirin 81 mg b.i.d. x6 weeks for DVT prophylaxis -DC home today once cleared by PT. 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 She has prepared well ahead of time. Discharge Plan Discharge Plan Patient Disposition: Home Discharge orders & Medications Discharge Orders: Discharge (Order); Ordered 10/17/21 Ordered By: Mary Fisher Prescriptions: New aspirin 81 mg Tablet,Delayed Release (Dr/Ec) 81 mg PO BID 42 Days Qty: 84 0RF Rx Instructions: Prevent blood clots docusate sodium 100 mg Capsule 100 mg PO BID PRN (Reason: Constipation from narcotic pain meds) Qty: 20 0RF ibuprofen 400 mg Tablet 400 mg PO Q4HR MDD Max 2400 mg per day PRN (Reason: Pain/inflammation) Qty: 90 0RF oxycodone 5 mg Tablet See Rx Instructions .ROUTE .COMPLEX PRN (Reason: Pain, Moderate (4-6)) Qty: 42 0RF Rx Instructions: Take 1-2 tablets by mouth every 4 hours as needed for moderate to severe postop pain ondansetron 4 mg Tablet,Disintegrating 4 mg PO Q4HR PRN (Reason: Nausea And Vomiting) Qty: 7 0RF Continued acetaminophen 650 mg Tablet Extended Release 1,300 mg PO BID Qty: 0 azelastine 137 MCG/0.137 ML aerosol,spray 2 spray Intranasal BID Qty: 30 1RF fluticasone propionate [Flonase Allergy Relief] 9.9 ML spray,suspension 2 spray Intranasal QDAY Qty: 1 2RF omeprazole 20 MG capsule,delayed release(DR/EC) 20 mg PO QDAY Qty: 90 3RF celecoxib 200 mg Capsule 200 mg PO BID melatonin 5 mg Tablet 10 mg PO BEDTIME tramadol 50 MG tablet 50 mg PO BID PRN (Reason: pain) Rx Instructions: 50 mg orally as needed rizatriptan [Maxalt-VP [employer]] 10 MG tablet,disintegrating 10 mg PO Q2HR PRN (Reason: Migraine Headache) Rx Instructions: Take at onset of migraine. May repeat x1. Max 30mg/24 hours. fluticasone propion-salmeterol [Wixela Inhub] 500-50 mcg/dose Blister With Device 1 inh INHALATION BID diclofenac sodium 1 % gel 2 % Topical BID PRN (Reason: Pain) Rx Instructions: Apply to affected area(s) on knee two times daily citalopram 20 mg Tablet 20 mg PO BEDTIME trospium 20 mg Tablet 20 mg PO BID Rx Instructions: administer on an empty stomach ibuprofen 200 mg Tablet 600 mg PO DAILY albuterol 90 mcg/actuation Aerosol See Rx Instructions .ROUTE .COMPLEX Rx Instructions: asthma Follow up/Referrals: Alex Young MD [Primary Care Provider] - Neha Hu MD [Physician] - (10-14 days for postoperative visit) Diet/Activity/Treatments Diet: Diet as Tolerated Other treatments: Medications: -Aspirin 81mg twice daily x6 weeks to prevent blood clots. -OTC Tylenol 500 mg 1 tablet every 4 hours as needed for pain/fever. Max 6 tablets per day. -Ibuprofen 400 mg 1 tablet every 4 hours as needed for pain/inflammation. Max 2,400 mg per day. -Oxycodone 5 mg take 1-2 tablets every 4 hours as needed for moderate-severe pain (narcotic pain medication). -Zofran 4 mg, dissolve 1 tab under tongue every 6-8 hours as needed for nausea/vomiting -As needed medications: -Ducolax and /or MiraLax as needed for constipation from narcotic pain medications. -Pepcid AC as needed for stomach upset (usually from aspirin or ibupro fen). Dressing/Wound care: -Remove the Aguilar wrap 48 hours after surgery. -Keep Monica dressing in place until postoperative follow-up office visit. The Monica battery/pump should last for 7 days. Once the pump stops, please cut off hose at base of dressing and cover with a bandaid/part of a dressing from Monica package. The monitor can be thrown away and recycle the batteries. Leave the remaining dressing in place. -Monica info: The monica dressing provides suction known as negative pressure wound therapy (in [place]), which draws out excess fluid from the wound and protect the incision. It also helps to prevent bacteria from entering the wound or incision. -Okay to shower. Keep wound out of direct water stream. No soaking or submerging until all the scabs fall off (approximately 4-6 weeks). -No lotions, ointments, or scar creams directly to the incision until the wound is healed (4-6 weeks), -Please call the office if dressing becomes wet, soiled, or saturated. Activities: -Weight-bearing as tolerated. Use front wheeled walker, and progress to cane when safe. -Continue with home exercises as directed by your physical therapist. -Elevate ?toes above the nose if you have significant swelling in your lower leg. (A wedge pillow is easiest.) -Ice your incision as needed for pain/inflammation/swelling. Protect your skin with a folded pillowcase. -Incentive Spirometer (breathing device from [facility]): 5-10xs every hour while awake for the first 1-2 weeks. Follow-up: -Follow-up with your surgeon or PA in the office in 10-14 days after surgery. -Follow-up with your surgeon 6 weeks postoperatively. Call the office if you have chest pain, shortness of breath, significant swelling that will not resolve with elevating, fever over 101?, significantly worsening pain, or are concerned you might need to go to the Emergency Room. [facility]: [phone] Skin/Wound/Dressing Care Report to your healthcare provider any signs of infection, such as:: chills, fever, night sweats, unusual drainage and unusual redness Visit Report/Discharge Packet Instructions: DI for Knee Replacement Stand Alone Forms: Surgery Discharge Discharge Data Primary Care Provider: Alex Young Attending Provider: Neha Hu Quality VTE Deep Vein Thrombosis/Pulmonary Embolism Present on Admission: No
[2021-10-17 11:27] VITALS: BP 136/64; PULSE 89; RESP 18; TEMP 36.7; O2SAT 100
--- NOTE | 2021-10-17 15:11 | PC.NURSE ---
Day shift: Paperwork signed and all questions answered. CMS remains intact. PPP. Pain well controlled per MAR. Steady on feet. Voiding well. Has ferry boarding pass. MD scripts sent to Pt's pharmacy. CHARLIE wrap and RADHA remain CDI. Left unit via at approx 1515. Pt's Spouse is driving. They are headed home to [place].
--- NOTE | 2021-10-17 15:54 | CM.DPNOTE ---
DC Note 71 yo POD1 from left knee surgery by Dr Hu, home today w/spouse, cleared by PT. Patient eager to return home, denies needs from this FUNDING ANALYST JW
== END 2021-10-17 15:13 | disposition home or self-care (01) ==
LOC: OR 10:14 → AC 17:54
PROVIDERS: Family Provider Family Medicine; PCP Family Medicine; Referring Provider Orthopaedic Surgery; Visit Provider Orthopaedic Surgery
PROC: 0SRD0JZ Replacement of Left Knee Joint with Synthetic Substitute, Open Approach (ICD-10-PCS; CPT 27447; principal; 2021-10-16 13:45)
DX: M17.12 Unilateral primary osteoarthritis, left knee (principal); M17.11 Unilateral primary osteoarthritis, right knee; G47.33 Obstructive sleep apnea (adult) (pediatric); J45.909 Unspecified asthma, uncomplicated; K21.9 Gastro-esophageal reflux disease without esophagitis
CPT/HCPCS: 27447; 01402; 36415; 73560; 85014; 85018; 94640; 94760; 94762; 97116; 97161; 97530; C1776; C1713; C9290; J0171; J0690; J1100; J2250; J2274; J2405; J2704; J2765; J3010; J7613

== ENCOUNTER 2022-04-03 14:29 | Emergency (ER) | payer MEDICARE, OTHER, SELFPAY ==
[2021-10-16 17:54] VITALS: BMI 32.9
[2022-04-03 15:05] VITALS: BP 159/71; PULSE 114; RESP 14; TEMP 36; O2SAT 99; BMI 32.5
--- NOTE | 2022-04-03 15:09 | DI.RAD.S_ITS ---
PROCEDURE: XR SHOULDER RT MIN 2V INDICATIONS: atraumatic pain TECHNIQUE: 3 views of the shoulder were acquired. COMPARISON: [facility], , SHOULDER MINIMUM 2VIEW RIGHT, 09/17/2015, 9:57. FINDINGS: Bones: No fractures or dislocations, but there is a moderate degree of osteoarthritis at the acromioclavicular and glenohumeral joints.. No suspicious bony lesions. Visualized ribs appear intact. Soft tissues: No suspicious soft tissue calcifications. IMPRESSION: No acute or prior trauma found but moderate osteoarthritis is present which has increased from 2016 at both the acromioclavicular and especially the glenohumeral joints. Dictated by: Thom Morocho M.D. on 04/03/2022 at 15:55 Approved by: Thom Morocho M.D. on 04/03/2022 at 15:56
--- NOTE | 2022-04-03 16:11 | PC.NURSE ---
Pt states she was using wheelbarrow to haul wood which she has done before. Having pain in the AC joint area, tender to touch. States she took tylenol and tramadol this morning which are part of her normal medications for chronic arthritis.
--- NOTE | 2022-04-03 21:09 | ED_ITS ---
HPI - Extremity Injury (Upper) <Yen Marsh PA-C - Last Filed: 04/03/22 21:19> General Chief Complaint: Extremity Injury, Upper Stated Complaint: RT shoulder injury t-3 Time Seen by Provider: 04/03/22 17:29 Source: patient Mode of arrival: Ambulatory History of Present Illness HPI narrative: Patient is a very pleasant 71-year-old female who does have a history of osteoarthritis in her shoulder, and she believes she exacerbated it by over using her shoulder, she loaded some firewood and stacked it, a day later she noticed significant pain in her right shoulder joint worse with abduction. She tried [id number] medication without relief, pain is so severe interfere with his sleep. These symptoms prompted a visit to ER. In the past she used to receive a steroid injection which was a great relief. She does not recall exactly when she got last injection. 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) tramadol 50 mg tablet 50 mg PO BID PRN pain 11/19/17 10/16/21 citalopram 20 mg tablet 20 mg PO BEDTIME 10/06/21 10/16/21 diclofenac sodium 1 % topical gel 2 % topical BID PRN Pain 10/06/21 10/16/21 fluticasone 500 mcg-salmeterol 50 1 inh inhalation BID 10/06/21 10/16/21 mcg/dose blistr powdr for inhalation (Wixela Inhub) ibuprofen 200 mg tablet 600 mg PO DAILY 10/06/21 10/16/21 trospium 20 mg tablet 20 mg PO BID Overactive bladder 10/06/21 10/16/21 albuterol 90 mcg/actuation aerosol See Rx Instructions .Route .COMPLEX 10/16/21 10/16/21 inhaler Previous Rx's Medication Instructions Recorded azelastine 137 mcg (0.1 %) nasal 2 spray intranasal BID #30 sprays 10/07/16 spray aerosol fluticasone propionate 50 2 spray intranasal QDAY ##1 11/05/16 mcg/actuation nasal spray,suspension (Flonase Allergy Relief) omeprazole 20 mg capsule,delayed 20 mg PO QDAY #90 caps 11/09/16 release docusate sodium 100 mg capsule 100 mg PO BID PRN Constipation 10/17/21 from narcotic pain meds #20 caps ibuprofen 400 mg tablet 400 mg PO Q4HR PRN 10/17/21 Pain/inflammation #90 tabs ondansetron 4 mg disintegrating 4 mg PO Q4HR PRN Nausea And 10/17/21 tablet Vomiting #7 tabs oxycodone 5 mg tablet See Rx Instructions .Route 10/17/21 .COMPLEX PRN Pain, Moderate (4-6) #42 tabs methylprednisolone 4 mg tablets in See Rx Instructions PO .COMPLEX 04/03/22 a dose pack (Medrol (Miki)) #21 ea Allergies Allergy/AdvReac Type Severity Reaction Status Date / Time adhesive tape Allergy Severe Rash Verified 04/03/22 15:09 amoxicillin [From Augmentin] Allergy Intermediate HIVES, Verified 04/03/22 15:09 ASTHMA FLARE-UP, BLISTERS clavulanic acid Allergy Intermediate HIVES, Verified 04/03/22 15:09 [From Augmentin] ASTHMA FLARE-UP, BLISTERS meloxicam Allergy Intermediate EDEMA/DYSPN Verified 04/03/22 15:09 EA aspirin AdvReac Severe TINNITUS Verified 04/03/22 15:09 promethazine AdvReac Severe AKATHISIA/R Verified 04/03/22 15:09 ESTLESS diclofenac AdvReac Intermediate LIVER Verified 04/03/22 15:09 CHANGES naproxen AdvReac Mild GASTRIC Verified 04/03/22 15:09 REFLUX Review of Systems <Yen Marsh PA-C - Last Filed: 04/03/22 21:19> Review of Systems Narrative: Eleven system reviewed and negative except as mentioned in HPI. Patient History <Yen Marsh PA-C - Last Filed: 04/03/22 21:19> Medical History Asthma Chronic hoarseness Dysphagia Dysphonia Low back pain Lumbar degenerative disc disease Lumbar disc herniation with radiculopathy Lumbar stenosis with neurogenic claudication MITALI (obstructive sleep apnea) Papilloma Weakness of right leg Surgical History History of bladder surgery History of hysterectomy (~2000) History of laryngoscopy Hx of discectomy (11/30/17) Hx of laminectomy Status post appendectomy (~1991) Status post discectomy (~1992) Status post knee surgery (~2001) Family History Brother Age: 80 COPD (chronic obstructive pulmonary disease) Father Heart disease Hypertension High cholesterol Grandfather Stroke Sister Age: 73 Cancer Diabetes mellitus Hypertension High cholesterol Sister Age: 64 Obesity Social History household members: spouse Smoking Status: Former smoker alcohol intake: former Smoking Status: Former smoker Substance Use Type: does not use Exam <Yen Marsh PA-C - Last Filed: 04/03/22 21:19> Narrative Exam Narrative: GENERAL: 71 year old patient appears stated age. Well-developed patient, in mild distress due to shoulder pain. HEAD: Atraumatic. Normocephalic. EYES: Pupils equal round and reactive. Extraocular motions intact. No scleral icterus. No injection or drainage. ENT: Nose without bleeding, purulent drainage. Throat without erythema, tonsillar hypertrophy or exudate. Airway patent. NECK: Trachea midline. Non tender CARDIOVASCULAR: Regular rate and rhythm without murmurs, gallops, or rubs. RESPIRATORY: Clear to auscultation. Breath sounds equal bilaterally. No wheezes, rales, or rhonchi. GASTROINTESTINAL: Abdomen soft, non-tender, nondistended. EXTREMITIES: No edema or joint tenderness. No edema in left, right upper extremity BACK: Nontender without deformity or crepitance. No flank tenderness. Musculoskeletal anterior right AC joint tenderness worse with abduction. Pain is relieved with bending her elbow, using sleeve NEURO: AOx3. Light touch pinprick sensation intact right arm. SKIN: No rash or erythema of visible areas Initial Vital Signs Initial Vital Signs: Vital Signs Temperature 96.8 F L 04/03/22 15:05 Pulse Rate 114 H 04/03/22 15:05 Respiratory Rate 14 04/03/22 15:05 Blood Pressure 159/71 H 04/03/22 15:05 Pulse Oximetry 99 04/03/22 15:05 Oxygen Delivery Method 04/03/22 15:05 <DO Simon Alvares Last Filed: 04/04/22 18:13> Initial Vital Signs Initial Vital Signs: Vital Signs Temperature 96.8 F L 04/03/22 15:05 Pulse Rate 114 H 04/03/22 15:05 Respiratory Rate 14 04/03/22 15:05 Blood Pressure 159/71 H 04/03/22 15:05 Pulse Oximetry 99 04/03/22 15:05 Oxygen Delivery Method 04/03/22 15:05 Course <FREDY Burrows Last Filed: 04/03/22 21:19> Orders Ordered: ED Orders 04/03/22 15:09 XR shoulder RT min 2V Stat Vital Signs Vital signs: Vital Signs - 8 hr 04/03/22 15:05 Temperature 96.8 F L Pulse Rate 114 H Respiratory Rate 14 Blood Pressure 159/71 H Pulse Oximetry 99 Oxygen Delivery Method Room Air <DO Simon Alvares Last Filed: 04/04/22 18:13> Orders Ordered: ED Orders 04/03/22 15:09 XR shoulder RT min 2V Stat Vital Signs Vital signs: Vital Signs - 8 hr 04/03/22 15:05 Temperature 96.8 F L Pulse Rate 114 H Respiratory Rate 14 Blood Pressure 159/71 H Pulse Oximetry 99 Oxygen Delivery Method Room Air MDM - Extremity Injury (Upper) <FREDY Burrows Last Filed: 04/03/22 21:19> Imaging Data Shoulder x-ray: Radiologist's Impression: ? IMPRESSION:? No acute or prior trauma found but moderate osteoarthritis is present which has increased from 2016 at both the acromioclavicular and especially the glenohumeral joints. ? MDM Narrative Medical decision making narrative: Discussed with patient diagnosis and treatment. Most likely culprit of patient's symptoms is exacerbation of degenerative disease of the right shoulder. Discussed on treatment, which is conservative, heat, analgesics. She does have some opioids analgesics from her prior surgery. She may try it, along with some guided PT, wear sling. She may try short course of oral steroids to reduce inflammation in the joint. Ultimately she may need to repeat intra-articular injection. Advised to discuss this with her PCP. Findings and discharge diagnosis discussed with patient followed by verbalization of understanding Return precautions discussed with patient whom verbalize understanding. Discharge Plan Departure Patient Disposition: Home Clinical Impression: Arthrosis of right shoulder Instructions: DI for Shoulder Pain Activity Restrictions/Additional Instructions: *You have been diagnosed with acute right shoulder pain, exacerbation of right shoulder arthritis *What to do: *Please continue to take your regular medications as directed. ] New medication prescriptions sent to your pharmacy: medrol dose pack continue to take you medication, oxycodone, tylenol *Please follow up with your primary care provider in 2-3 days, call for an appointment. Let them know you were seen in the Emergency Department and that we ask that you be seen in follow up. We will electronically transmit a record of today's note if your PCP is in our system [facility] to follow with ortho concerning intra articular steroid injection *If you do not have a primary care provider please contact the [facility] Resource line at [phone]. They will ask some questions about your medical history and help get you set up with a doctor in the community. *Return to Emergency Department if you should have any new, worsening or concerning symptoms, such as worsening pain, persistent vomiting or other bothersome symptoms Prescriptions: New methylprednisolone [Medrol (Miki)] 4 mg tablets,dose pack See Rx Instructions .ROUTE .COMPLEX Qty: 21 0RF Rx Instructions: orally per package directions No Action acetaminophen 650 mg Tablet Extended Release 1,300 mg PO BID Qty: 0 azelastine 137 MCG/0.137 ML aerosol,spray 2 spray Intranasal BID Qty: 30 1RF fluticasone propionate [Flonase Allergy Relief] 9.9 ML spray,suspension 2 spray Intranasal QDAY Qty: 1 2RF omeprazole 20 MG capsule,delayed release(DR/EC) 20 mg PO QDAY Qty: 90 3RF celecoxib 200 mg Capsule 200 mg PO BID melatonin 5 mg Tablet 10 mg PO BEDTIME tramadol 50 MG tablet 50 mg PO BID PRN (Reason: pain) Rx Instructions: 50 mg orally as needed rizatriptan [Maxalt-CUT OFF WORKER] 10 MG tablet,disintegrating 10 mg PO Q2HR PRN (Reason: Migraine Headache) Rx Instructions: Take at onset of migraine. May repeat x1. Max 30mg/24 hours. fluticasone propion-salmeterol [Wixela Inhub] 500-50 mcg/dose Blister With Device 1 inh INHALATION BID diclofenac sodium 1 % gel 2 % Topical BID PRN (Reason: Pain) Rx Instructions: Apply to affected area(s) on knee two times daily citalopram 20 mg Tablet 20 mg PO BEDTIME trospium 20 mg Tablet 20 mg PO BID Rx Instructions: administer on an empty stomach ibuprofen 200 mg Tablet 600 mg PO DAILY albuterol 90 mcg/actuation Aerosol See Rx Instructions .ROUTE .COMPLEX Rx Instructions: asthma docusate sodium 100 mg Capsule 100 mg PO BID PRN (Reason: Constipation from narcotic pain meds) Qty: 20 0RF ibuprofen 400 mg Tablet 400 mg PO Q4HR MDD Max 2400 mg per day PRN (Reason: Pain/inflammation) Qty: 90 0RF oxycodone 5 mg Tablet See Rx Instructions .ROUTE .COMPLEX PRN (Reason: Pain, Moderate (4-6)) Qty: 42 0RF Rx Instructions: Take 1-2 tablets by mouth every 4 hours as needed for moderate to severe postop pain ondansetron 4 mg Tablet,Disintegrating 4 mg PO Q4HR PRN (Reason: Nausea And Vomiting) Qty: 7 0RF Referrals: Odalys Velazco MD [Primary Care Provider] - Stand Alone Forms: Patient Portal/API <Mala Chaney DO - Last Filed: 04/04/22 18:13> [facility] A[facility] Attestation: I was immediately available in the department for consultation. Documentation has been reviewed. I agree with assessment and plan.
== END 2022-04-03 18:01 | disposition home or self-care (01) ==
PROVIDERS: Emergency Provider Physician Assistant Medical; Family Provider Family Medicine; PCP Family Medicine
DX: M19.011 Primary osteoarthritis, right shoulder (principal)
CPT/HCPCS: 73030; 99283

== ENCOUNTER → 2022-05-25 11:29 | Outpatient (CLI) | payer MEDICARE, OTHER, SELFPAY ==
[2021-10-16 17:54] VITALS: BMI 32.9
--- NOTE | 2022-05-25 | DI.CT.S_ITS ---
PROCEDURE: CT UE RT WO CON INDICATIONS: Primary osteoarthritis, RIGHT shoulder TECHNIQUE: Noncontrast 1-1.5 mm thick sections acquired from the acromioclavicular joint to the inferior scapula, with coronal and sagittal reformatting. COMPARISON: None. FINDINGS: Image quality: Excellent. Bones: Moderate acromioclavicular joint osteoarthritic changes are seen with joint space narrowing, subchondral sclerosis and downward osteophyte formation depressing the musculotendinous junction of supraspinatus. Severe glenohumeral joint osteoarthritic changes also noted with near complete loss of joint space, extensive subchondral sclerosis and cyst formation and prominent inferior marginal osteophyte formation. No acute shoulder fracture or dislocation. No suspicious bony lesions. Visualized right ribs are intact. Soft tissues: There is no full-thickness rotator cuff tendon rupture. Mild supraspinatus muscle atrophy is noted on sagittal images. No abnormal soft tissue calcifications. No significant joint effusion or intra-articular loose bodies. Visualized right lung field is clear. IMPRESSION: 1. Severe glenohumeral joint osteoarthritis and moderate acromioclavicular joint osteoarthritis. No shoulder fracture or dislocation. No suspicious bony lesions. 2. No significant joint effusion or intra-articular loose bodies. No abnormal soft tissue calcifications. No full-thickness rotator cuff tendon rupture. Mild supraspinatus muscle atrophy. Dictated by: Hari Navarrete M.D. on 05/25/2022 at 13:34 Approved by: Hari Navarrete M.D. on 05/25/2022 at 14:33
== END ==
PROVIDERS: Family Provider Family Medicine; PCP Family Medicine; Referring Provider Orthopaedic Surgery; Visit Provider Orthopaedic Surgery
DX: M19.012 Primary osteoarthritis, left shoulder (principal)
CPT/HCPCS: 73200

== ENCOUNTER → 2022-07-14 15:02 | Outpatient (CLI) | payer MEDICARE, OTHER, SELFPAY ==
[2021-10-16 17:54] VITALS: BMI 32.9
[2022-07-14 15:56] LABS: Add Manual Diff / Slide Review NO; Basophils Absolute Auto 100 /uL (0-100); Basophils Percent Auto 0.9 % (0-2); Eosinophils Absolute Auto 200 /uL (0-450); Eosinophils Percent Auto 2.2 % (2-4); Hematocrit 39.4 % (36-46); Hemoglobin 13.3 g/dL (12.0-16.0); Lymphocytes Absolute Auto 2800 /uL (1100-4500); Lymphocytes Percent Auto 31.7 % (25-40); Mean Corpuscular HGB Conc 33.8 % (30-36); Mean Corpuscular Hemoglobin 29.3 PG (26-34); Mean Corpuscular Volume 86.6 fL (80-100); Monocytes Absolute Auto 700 /uL (0-900); Monocytes Percent Auto 7.7 % (3-14); Neutrophils Absolute Auto 5000 /uL (1500-7000); Neutrophils Percent Auto 57.5 % (50-75); Platelet Count 371 X10^3/uL (150-400); Red Blood Cell Count 4.55 X10^6/uL (4.0-5.2); Red Cell Distribution Width 12.6 % (11.6-14.8); White Blood Cell Count 8.7 X10^3/uL (4.5-11.0)
[2022-07-14 16:14] LABS: BUN Creatinine Ratio 22.1 (6-22); Blood Urea Nitrogen 21 mg/dL (7-17); Calcium 9.4 mg/dL (8.4-10.2); Carbon Dioxide 27 mmol/L (22-32); Chloride 100 mmol/L (98-107); Estimated Glomerular Filt Rate > 60 mL/min (>60); Glucose 110 mg/dL (80-110); HEMOLYSIS < 15 (0-50); Sodium 136 mmol/L (137-145)
== END ==
PROVIDERS: Family Provider Family Medicine; PCP Family Medicine; Referring Provider Orthopaedic Surgery; Visit Provider Orthopaedic Surgery
DX: Z01.818 Encounter for other preprocedural examination (principal); Z01.812 Encounter for preprocedural laboratory examination; N39.0 Urinary tract infection, site not specified
CPT/HCPCS: 36415; 80048; 85025; 93005; 93010

== ENCOUNTER → 2022-07-24 08:09 | Outpatient (CLI) | payer MEDICARE, OTHER, SELFPAY ==
[2021-10-16 17:54] VITALS: BMI 32.9
[2022-07-24 09:27] LABS: Appearance Urine UA CLEAR; Bilirubin Urine UA NEGATIVE (NEGATIVE); Color Urine UA YELLOW; Glucose Urine UA NEGATIVE (Negative); Ketones Urine UA NEGATIVE (NEGATIVE); Leukocyte Esterase Urine UA 2+ (NEGATIVE); Nitrite Urine UA NEGATIVE (Negative); Occult Blood Urine UA NEGATIVE (Negative); Protein Urine UA NEGATIVE (Negative); Specific Gravity Urine UA 1.025 (1.000-1.035); Urobilinogen Urine UA 0.2 E.U./dL (0.2)
[2022-07-24 09:30] LABS: pH Urine UA 5.5 (4.5-8.0)
[2022-07-24 09:58] LABS: Bacteria Urine Occasional (0-1); Hyaline Casts Urine 5-10/LPF; RBC Urine 0-1/HPF (0-5/HPF); Squamous Epithelial Cell Urine 0-1 /HPF (0-5/HPF); Transitional Epi Cells Urine 0-1/HPF (0-5/HPF); WBC Urine 10-30/HPF (0-5/HPF)
[2022-07-24 09:59] LABS: Culture Indicated Urine Specimen Cultured
== END ==
PROVIDERS: Family Provider Family Medicine; PCP Family Medicine; Referring Provider Orthopaedic Surgery; Visit Provider Orthopaedic Surgery
DX: N39.0 Urinary tract infection, site not specified (principal)
CPT/HCPCS: 81001; 87086

== ENCOUNTER 2022-08-27 12:34 | Inpatient (IN) | payer MEDICARE, OTHER, SELFPAY ==
[2021-10-16 17:54] VITALS: BMI 32.9
[2022-08-19 10:34] VITALS: BMI 32.5
[2022-08-27] VITALS (8 sets, daily range): BP systolic 107–167; BP diastolic 42–81; PULSE 76–114; RESP 14–26; TEMP 36.1–36.9; O2SAT 90–100; BMI 32.5
--- NOTE | 2022-08-27 07:19 | DI.RAD.S_ITS ---
PROCEDURE: XR SHOULDER RT MIN 2V INDICATIONS: RTSA TECHNIQUE: 1 views of the shoulder were acquired. COMPARISON: Merged With [facility], CR, XR SHOULDER RT MIN 2V, 04/03/2022, 15:39. FINDINGS: Bones: No fractures or dislocations. No suspicious bony lesions. Visualized ribs appear intact. Right shoulder arthroplasty is present. Hardware is intact bones of hardware fracture or periprosthetic lucency. There is good anatomic alignment. Soft tissues: No suspicious soft tissue calcifications. IMPRESSION: Right shoulder arthroplasty. Dictated by: Le Parsons M.D. on 08/27/2022 at 18:05 Approved by: Le Parsons M.D. on 08/27/2022 at 18:05
[2022-08-27] MEDS: LACTATED RINGERS 1,000 ML 42 ML IV (13:26)
[2022-08-27] MEDS: ACETAMINOPHEN 325 MG TABLET 975 MG PO (13:31)
--- NOTE | 2022-08-27 14:31 | P.HP_ITS ---
History of Present Illness History of Present Illness Date Patient Seen: 08/27/22 Time Patient Seen: 14:32 Chief complaint: INPT Narrative: Ayana is a pleasant 72-year-old female who has a long history of right shoulder pain, she has glenohumeral arthritis on her x-rays and she has had a progressive decreased use of her arm due to pain. She is now struggling with activities of daily living and is having difficulty sleeping on a nightly basis. We would previously discussed performing a total shoulder arthroplasty which she wished to go forward with. [facility] Medical History (Updated 08/19/22 @ 11:13 by Kiersten Webb RN) Asthma Chronic hoarseness Dysphagia Dysphonia HTN (hypertension) Low back pain Lumbar degenerative disc disease Lumbar disc herniation with radiculopathy Lumbar stenosis with neurogenic claudication MITALI (obstructive sleep apnea) Papilloma Weakness of right leg Surgical History (Updated 08/19/22 @ 11:15 by Kiersten Webb RN) History of bladder surgery History of hysterectomy (~2000) History of laryngoscopy History of throat surgery (07/29/22) History of total left knee replacement (10/16/21) Hx of discectomy (11/30/17) Hx of laminectomy Status post appendectomy (~1991) Status post discectomy (~1992) Status post knee surgery (~2001) Family History Brother Age: 80 COPD (chronic obstructive pulmonary disease) Father Heart disease Hypertension High cholesterol Grandfather Stroke Sister Age: 73 Cancer Diabetes mellitus Hypertension High cholesterol Sister Age: 64 Obesity Social History household members: spouse Smoking Status: Former smoker alcohol intake: never Meds Home Medications and Allergies Home Medications Medication Instructions Recorded Confirmed Type acetaminophen 650 mg 1,300 mg PO BID ##0 02/22/12 08/27/22 History tablet,extended release azelastine 137 mcg (0.1 %) nasal 2 spray intranasal BID #30 sprays 10/07/16 08/27/22 Rx spray aerosol fluticasone propionate 50 2 spray intranasal QDAY ##1 11/05/16 08/19/22 Rx mcg/actuation nasal spray,suspension (Flonase Allergy Relief) omeprazole 20 mg capsule,delayed 20 mg PO QDAY #90 caps 11/09/16 08/19/22 Rx release celecoxib 200 mg capsule 200 mg PO BID 11/19/17 08/27/22 History melatonin 5 mg tablet 10 mg PO BEDTIME PRN Sleep 11/19/17 08/19/22 History rizatriptan 10 mg disintegrating 10 mg PO Q2HR PRN Migraine Headache 11/19/17 08/19/22 History 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) tramadol 50 mg tablet 50 mg PO BID 11/19/17 08/19/22 History citalopram 20 mg tablet 40 mg PO BEDTIME 10/06/21 08/19/22 History diclofenac sodium 1 % topical gel 2 % topical BID PRN Pain 10/06/21 08/19/22 History trospium 20 mg tablet 20 mg PO BID Overactive bladder 10/06/21 08/19/22 History albuterol 90 mcg/actuation aerosol See Rx Instructions .Route .COMPLEX 10/16/21 08/27/22 History inhaler docusate sodium 100 mg capsule 100 mg PO BID PRN Constipation 10/17/21 08/19/22 Rx from narcotic pain meds #20 caps amlodipine 10 mg tablet 10 mg PO BEDTIME 08/19/22 08/27/22 History aspirin 81 mg capsule 81 mg PO DAILY 08/19/22 08/27/22 History budesonide-formoterol HFA 160 1 puff inhalation BID 08/19/22 08/27/22 History mcg-4.5 mcg/actuation aerosol inhaler (Symbicort) bupropion HCl 75 mg tablet 75 mg PO BID 08/19/22 08/27/22 History losartan 50 mg tablet 50 mg PO BID 08/19/22 08/19/22 History Allergies Allergy/AdvReac Type Severity Reaction Status Date / Time adhesive tape Allergy Severe Rash Verified 08/27/22 12:51 amoxicillin [From Augmentin] Allergy Intermediate HIVES, Verified 08/27/22 12:51 ASTHMA FLARE-UP, BLISTERS clavulanic acid Allergy Intermediate HIVES, Verified 08/27/22 12:51 [From Augmentin] ASTHMA FLARE-UP, BLISTERS meloxicam Allergy Intermediate EDEMA/DYSPN Verified 08/27/22 12:51 EA aspirin AdvReac Severe TINNITUS Verified 08/27/22 12:51 promethazine AdvReac Severe AKATHISIA/R Verified 08/27/22 12:51 ESTLESS diclofenac AdvReac Intermediate LIVER Verified 08/27/22 12:51 CHANGES naproxen AdvReac Mild GASTRIC Verified 08/27/22 12:51 REFLUX Review of Systems Review of Systems ROS: Yes All systems reviewed with the patient and are negative except as otherwise documented Exam Vital Signs (past 8 hours): - 08/27/22 13:18 Temperature 98.5 F Pulse Rate 76 Respiratory Rate 16 Blood Pressure 107/58 L Pulse Oximetry 100 Oxygen Delivery Method Room Air Oxygen Delivery Method Room Air Narrative Exam Narrative: HEENT: Head atraumatic eyes anicteric moist mucous membranes Cardiovascular: Palpable peripheral pulses extremities are warm and well perfused Respiratory: Breathing comfortably on room air Psychiatric: Appropriate mood and affect Neuro: No acute deficits Musculoskeletal: Exam of right shoulder demonstrates forward elevation of 145, external rotation 50?, pain with range of motion and at end ranges of motion. Sensation intact to light touch in median, radial, ulnar nerve distributions. 2+ radial pulse with brisk capillary refill less than 2 seconds. Assessment & Plan Assessment & Plan narrative: Assessment: 72-year-old female with right glenohumeral arthritis Plan: Reversal shoulder arthroplasty. We discussed previously the risks and benefits of surgery. Risks include but are not limited to infection, damage to internal structures including veins arteries nerves, risk of anesthesia and . Need for revision surgery, instability, No guarantees were made regarding outcomes. She expressed understanding with these risks and wished to go forward with surgery.
[2022-08-27] MEDS: CEFAZOLIN 2 GM/100 ML PREMIX 100 ML IV (15:19)
--- NOTE | 2022-08-27 15:44 | SUR.OPER ---
Beach chair with [employer]tron bed shoulder positioner. Lower body on padded OR bed. Head in padded head cradle, secured with straps. Non-operative arm secured <90 degrees abduction with gel pad and tape over the top. Pillows under knees. Safety belt at thigh. Cloth tape over blanket over lower legs.
[2022-08-27] MEDS: TRANEXAMIC ACID 1,000 MG VIAL 2000 MG INJ ×2 (16:29→17:10)
[2022-08-27] MEDS: BUPIVACAINE 0.25% (PF) 30 ML, EPINEPHrine 0.15 MG INJ (16:31)
--- NOTE | 2022-08-27 17:03 | PM.OP.1 ---
Operative Date/Time/Diagnoses Date of procedure: 08/27/22 Time of procedure: 17:07 Pre-op diagnosis: Right glenohumeral arthritis Post-op diagnosis: same Procedure & Clinicians Procedure: Right reverse total shoulder arthroplasty Same procedure as scheduled: Yes Indications: Indications: This is a 72-year-old female who has rotator cuff arthropathy. Symptoms have been present for years, insidious onset. Patient has failed conservative therapy including injections, physical therapy, anti-inflammatories and activity modification. After extensive discussion in clinic, they wished to go forward with surgery. Risks and benefits were described including the risk of infection, bleeding, damage to internal structures including nerves. We also discussed the risk of failure of surgery and the need for revision surgery as well as the risk of anesthesia. The patient expressed understanding with these risks and wished to go forward with surgery. Surgeon: Cosmo Khan [employer] Goods Inspector: Ariana Shannon Anesthesia Type: General Operative Notes Findings: Findings: Osteoarthritis of the glenoid and humeral head, intact rotator cuff as seen under direct visualization Closure Type: primary Specimen(s): none sent Prosthetic devices, grafts, tissues, transplants, or devices: Tornier implants Base plate: standard 25 mm, +3 mm offset Glenosphere: Standard 36 mm Stem: Perform 2+ Poly: +0 concentric Estimated Blood Loss (mL): 50 Blood products transfused: none Procedure in detail: Patient was seen in the preoperative holding unit. The correct right shoulder was identified and marked with my initials. Again we discussed the risks and benefits of surgery and they wished to go forward with surgery. The patient was brought back to the operating room and placed supine on the operating table. Smooth endotracheal intubation was performed by anesthesia. All prominences were padded and they were placed into the beach chair position. Intravenous antibiotics were given. The right shoulder was then prepped with the standard sterile preparation and draping. A time-out was then performed in my initials were again identified on the correct shoulder. 1 g of IV tranexamic acid was given. A standard deltopectoral incision was made. Skin flaps were made. The cephalic vein was identified and retracted laterally. This was protected throughout the remainder of the case. Sharp dissection was made along the deltoid, subacromial and subcoracoid space to release adhesions. The conjoined tendon was identified and the axillary nerve was palpated and continuous using the tug test. It was protected throughout the remainder of the case. A brown retractor was placed underneath the deltoid muscle and a darach retractor underneath the conjoint tendon. The anterior circumflex artery and associated veins on the lower border of the subscapularis were identified and tied off using 0-Vicryl. The biceps tendon was identified in the bicipital groove. This was released from its sheath, and taken from its origin on the glenoid and tied into the pectoralis tendon for a solid tenodesis. We then began a subscapularis peel. The subscapularis was tagged with an Ethibond suture. A 360 degree circumferential release of the subscapularis was performed with protection of the axillary nerve. The coracohumeral ligament was released at the base of the coracoid. The coracoacromial ligament was left intact. The shoulder was then dislocated. Osteophytes were removed using combination of rongeur and osteotome. The rotator cuff was noted to be intact. An intramedullary guide was used set at version of 30?. Using an oscillating saw a conservative humeral head cut was made. Impaction reamers were reamed up to a size 2 stem with a built-in angle 135?. A neck protector was placed. Attention was then turned to the glenoid. After retracting the humeral head posteriorly a circumferential release was performed of the capsule with protection of the axillary nerve. The labrum was then released starting at the biceps anchor and going around the rim a small amount of triceps was released from the inferior glenoid. A center guide pin was then placed using the guide, followed by Reamer. After adequate cartilage was removed the center drill hole was drilled and measured. The base plate was then implanted and screwed into place. The superior drill hole was drilled and filled in a nonlocking fashion, followed by the inferior, the anterior and posterior holes did not have enough bone stock in so were left intact. A 36 standard glenosphere was then selected and screwed into place onto the base plate. Turning back to the humerus, the humeral head was delivered and trialed with a 0 concentric. The arm was taken through range of motion and this was felt to be stable. The trial was then removed and a dilute Betadine wash was then performed with 1 L of sterile saline. Before placing the final implant, drill holes were made in the bicipital groove for the subscapularis repair, and sutures were passed through the drill holes. The final stem was then impacted into the humerus. The shoulder was then reduced and again brought through range of motion and was felt to be stable. The interval was then closed using #2 Ethibond. The subscapularis was then repaired using a modified racking hitch with nice loupes. The deltopectoral interval was then closed with #2 Ethibond. The skin was closed with 2-0 PDS and Monocryl followed by Aquacel dressing. Patient was awoken from anesthesia and brought back to the postoperative recovery unit without issue. They were placed into a sling. Assisting participation: This operation could not have been safely performed (without compromising the technical results or length of the procedure) without the assistance of a skilled surgical device sales representative. The surgical device sales representative was medically necessary for proper positioning, retraction and manipulation of instruments, proper exposure, graft prep, and manipulation of tissue. Complications: none Post-operative Condition: stable Disposition: PACU Plan for aftercare: Postoperative instructions: Sling to remain on for 6 weeks. No external rotation past neutral for 6 weeks. Okay for him to come off her shower. Okay to shower over the Aquacel dressing. If any water gets underneath the dressing, remove the dressing. First postoperative visit in 2 weeks.
== END 2022-08-27 18:46 | disposition home or self-care (01) | DRG 483 ==
PROVIDERS: Admitting Provider Orthopaedic Surgery; Family Provider Family Medicine; PCP Family Medicine; Referring Provider Orthopaedic Surgery; Visit Provider Orthopaedic Surgery
PROC: 0RRJ00Z Replacement of Right Shoulder Joint with Reverse Ball and Socket Synthetic Substitute, Open Approach (ICD-10-PCS; CPT 23472; principal; 2022-08-27 13:45)
DX: M19.011 Primary osteoarthritis, right shoulder (principal); Z87.891 Personal history of nicotine dependence; Z20.822 Contact with and (suspected) exposure to COVID-19
CPT/HCPCS: 64450; 73020; C1776; J0171; J0690; J1100; J2250; J2405; J2704; J3010

== ENCOUNTER → 2022-12-04 13:30 | Outpatient (CLI) | payer MEDICARE, OTHER, SELFPAY ==
[2021-10-16 17:54] VITALS: BMI 32.9
--- NOTE | 2022-12-04 | DI.CT.S_ITS ---
PROCEDURE: CT UE RT WO CON INDICATIONS: Right shoulder pain post injury TECHNIQUE: Noncontrast 1-1.5 mm thick sections acquired from the acromioclavicular joint to the inferior scapula, with coronal and sagittal reformatting. COMPARISON: [facility], CT, CT UE RT WO CON, 05/25/2022, 11:35. FINDINGS: Image quality: Excellent. Bones: Patient is status post reverse right shoulder arthroplasty with anatomic shoulder alignment. No gross hardware loosening or failure is seen. No periprosthetic fracture or dislocation. Moderate acromioclavicular joint osteoarthritic changes are seen with joint space narrowing, subchondral sclerosis and marginal osteophyte formation depressing on musculotendinous junction of supraspinatus. Small calcification with well corticated margins superior to acromioclavicular joint is seen suggestive of remote healed injury unchanged from previous study. No acute fracture or dislocation. No suspicious bony lesions. Visualized right upper ribs are intact. Soft tissues: There is no full-thickness rotator cuff tendon rupture. No abnormal soft tissue calcifications. No significant rotator cuff muscle atrophy. No significant joint effusion or calcified intra-articular loose body is seen. Visualized right lung field is clear. IMPRESSION: 1. Prior right shoulder reverse arthroplasty with anatomic shoulder alignment. No evidence of hardware loosening or failure. No periprosthetic fracture. 2. Suggestion of remote injury involving superior aspect of acromioclavicular joint with well corticated bony fragment. No acute fracture or dislocation is seen in right shoulder. Moderate acromioclavicular joint osteoarthritis. 3. No full-thickness rotator cuff tendon rupture. No significant joint effusion. No abnormal soft tissue calcifications. Dictated by: Hari Navarrete M.D. on 12/04/2022 at 14:31 Approved by: Hari Navarrete M.D. on 12/04/2022 at 15:36
== END ==
PROVIDERS: Family Provider Family Medicine; PCP Family Medicine; Referring Provider Orthopaedic Surgery; Visit Provider Orthopaedic Surgery
DX: M19.011 Primary osteoarthritis, right shoulder (principal); Z96.611 Presence of right artificial shoulder joint
CPT/HCPCS: 73200

== ENCOUNTER → 2023-02-17 14:39 | Outpatient (CLI) | payer MEDICARE, OTHER, SELFPAY ==
[2021-10-16 17:54] VITALS: BMI 32.9
--- NOTE | 2023-02-17 | DI.US.S_ITS ---
PROCEDURE: US PERIPH VENOUS LOW EXTREM RT INDICATIONS: EDEMA AND ELEVATED D-DIMER TECHNIQUE: Real-time imaging, as well as color and pulse Doppler interrogation, were performed of the lower extremity deep veins from the inguinal ligament to the popliteal fossa, with documentation of the visualized calf veins. COMPARISON: None. FINDINGS: The common femoral, femoral, popliteal, and the visualized calf veins are normally compressible, and free of intraluminal thrombus. Color and pulse Doppler demonstrate normal phasic intraluminal flow. There is normal augmentation response to distal compression maneuver. Suspected Bonilla's cyst is present measuring 3.6 x 3.1 cm. There is also right calf fluid collection that is long and thin, measuring to 8.4 cm and 0.7 cm in thickness . IMPRESSION: No findings of lower extremity deep venous thrombosis. Long and thin fluid collection in the right calf, sterility indeterminate. Suspected Bonilla's cyst also seen. Dictated by: Toni Jarquin M.D. on 02/17/2023 at 17:33 Approved by: Toni Jarquin M.D. on 02/17/2023 at 17:34
== END ==
PROVIDERS: Family Provider Family Medicine; PCP Family Medicine; Referring Provider Family Medicine; Visit Provider Family Medicine
DX: R60.0 Localized edema (principal); R79.89 Other specified abnormal findings of blood chemistry
CPT/HCPCS: 93971